=== PATIENT | male | born 1975 | race Hispanic/Latino ===

== ENCOUNTER 2020-02-09 17:48 | Emergency (ER) | payer SELFPAY ==
[2020-02-09] MEDS ORDERED: ACETAMINOPHEN EXTRA STRENGTH 500 MG TABLET ONE (18:00)
== END 2020-02-09 20:04 | disposition home or self-care (01) ==
LOC: EDH 17:48
DX: S90.32XA Contusion of left foot, initial encounter (principal); S40.012A Contusion of left shoulder, initial encounter; I10 Essential (primary) hypertension; X50.1XXA Overexertion from prolonged static or awkward postures, initial encounter; Y92.89 Other specified places as the place of occurrence of the external cause; Y93.89 Activity, other specified; Y99.8 Other external cause status
CPT/HCPCS: 73030; 73630